=== PATIENT | female | born 1955 | race Two or more races ===

== ENCOUNTER 2023-07-25 04:38 | Day surgery (SDC) | payer OTHER, BC ==
[2023-07-21 08:45] VITALS: BMI 24.2
[2023-07-25 09:56] VITALS: BP 104/63; PULSE 57; RESP 14; TEMP 97.6
== END 2023-07-25 10:20 | disposition home or self-care (01) ==
LOC: JASU-ENDO 04:38
PROVIDERS: ATTEND Internal Medicine Gastroenterology
PROC: 0DJD8ZZ Inspection of Lower Intestinal Tract, Via Natural or Artificial Opening Endoscopic (ICD-10-PCS; principal; 2023-07-25 09:00)
DX: Z12.11 Encounter for screening for malignant neoplasm of colon (principal); K57.30 Diverticulosis of large intestine without perforation or abscess without bleeding; Z83.719 Family history of colon polyps, unspecified